=== PATIENT | male | born 1945 | race Caucasian/White ===

== ENCOUNTER 2019-09-08 10:54 | Emergency (ER) | payer MEDICARE ==
[2019-09-08] MEDS ORDERED: Bacitracin Oint 1 GM U/D Packet TOP ONE (11:14)
[2019-09-08] MEDS ORDERED: Diphtheria,Pertussis(Acell),Tetanus Vaccine 0.5 ML SDV IM ONE (11:14)
--- NOTE | 2019-09-08 11:19 | EDM.PDOC ---
ED HPI GENERAL MEDICAL PROBLEM - General Chief Complaint: Upper Extremity Injury/Pain Stated Complaint: INJURED RIGHT HAND Time Seen by Provider: 09/08/19 11:10 Source of Information: Reports: Patient History Limitations: Reports: No Limitations - History of Present Illness INITIAL COMMENTS - FREE TEXT/NARRATIVE: 74 yo male had a falling Bobcat bucket glance off his R hand. Is not sure about tetanus. Injury occurred just before arrival. Is on warfarin/ASA. Has some open wounds. Here via private vehicle. Onset: Today Onset Date: 09/08/19 Onset Time: 10:20 Duration: Minutes:, Constant Location: Reports: Upper Extremity, Right Quality: Reports: Dull Severity: Mild Improves with: Reports: Rest Worsens with: Reports: Movement Context: Reports: Trauma Associated Symptoms: Reports: No Other Symptoms Treatments STATISTICAL REPORTING ANALYST: Reports: Other (see below) (none) Right Hand Pain Score (Numeric/FACES): 2 - Related Data Allergies Allergy/AdvReac Type Severity Reaction Status Date / Time clopidogrel [From Plavix] Allergy Other Verified 09/08/19 11:24 Home Meds: Home Meds Aspirin [Halfprin] 81 mg PO DAILY 09/08/19 [History] Cholecalciferol (Vitamin D3) [Vitamin D3] 1,000 unit PO DAILY 09/08/19 [History] Losartan [Cozaar] 25 mg PO DAILY 09/08/19 [History] Magnesium Oxide [Magnesium] 400 mg PO DAILY 09/08/19 [History] Omeprazole Magnesium [Prilosec Otc] 20 mg PO DAILY 09/08/19 [History] Warfarin Sodium [Coumadin] 5 mg PO DAILY 09/08/19 [History] atorvaSTATin [Lipitor] 80 mg PO BEDTIME 09/08/19 [History] carvediloL [Carvedilol] 3.125 mg PO BID 09/08/19 [History] Review of Systems - Review of Systems Review Of Systems: See Below Constitutional: Reports: No Symptoms Musculoskeletal: Reports: Other (open wounds noted right hand) Skin: Reports: Wound (R hand) Neurological: Reports: No Symptoms ED EXAM, GENERAL - Physical Exam Exam: See Below Exam Limited By: No Limitations General Appearance: Alert, WD/WN, No Apparent Distress Neurological: Alert, Oriented, CN II-XII Intact, Normal Cognition, No Motor/ Sensory Deficits Psychiatric: Normal Affect, Normal Mood Skin Exam: Warm, Dry, Normal Color, No Rash, Wound/Incision (lacerations of the R hand noted with some active bleeding. ). No: Diaphoretic, Ecchymosis, Increased Warmth, Lymphangitis ED TRAUMA EXTREMITY PROCEDURES - Laceration/Wound Repair Right Dorsal Hand Lac/Wound Length In cm: 2.5 (had 2 lacerations this size, one on the dorsum of the R hand and one on the cruz side of the proximal R thumb. ) Appearance: Subcutaneous, Linear, Irregular, Clean Distal NVT: Neuro & Vascular Intact, No Tendon Injury Anesthetic Type: Local Local Anesthesia - Lidocaine (Xylocaine): 1% with EPI Local Anesthetic Volume: Other (10 ml) Skin Prep: Saline Exploration/Debridement/Repair: Wound Explored Closed With: Sutures Suture Size: 5-0 # of Sutures: 13 (13 sutures total for both wounds) Suture Type: Nylon, Interrupted, Simple Drain Placement: No Sterile Dressing Applied: Nurse Tetanus Status Addressed: Yes Complications: No Course - Vital Signs Last Recorded V/S: Last Vital Signs Temp 36.8 C 09/08/19 11:26 Pulse 62 09/08/19 11:26 Resp 16 09/08/19 11:26 BP 148/82 H 09/08/19 11:26 Pulse Ox 93 L 09/08/19 11:26 - Orders/Labs/Meds Orders: Active Orders 24 hr Category Date Time Status Vaccines to be Administered [RC] PER UNIT ROUTINE Care 09/08/19 11:14 Active Hand Comp Min 3V Rt [CR] Stat Exams 09/08/19 11:15 Taken Meds: Medications Discontinued Medications Generic Name Dose Route Start Last Admin Trade Name Pratibha PRN Reason Stop Dose Admin Bacitracin 2 dose 09/08/19 11:14 Bacitracin Oint 1 Gm TOP 09/08/19 11:15 ONETIME ONE Diphtheria/Tetanus/Acell Pertussis 0.5 ml 09/08/19 11:14 Adacel IM 09/08/19 11:15 .ONCE ONE Lidocaine HCl 10 ml 09/08/19 11:40 09/08/19 11:44 Xylocaine 2% Jelly MUCMEM 09/08/19 11:41 10 ml ONETIME ONE Administration Lidocaine/Epinephrine 6 ml 09/08/19 11:34 09/08/19 11:44 Xylocaine 1% With Epinephrine 1:100,000 SUBCUT 09/08/19 11:35 6 ml NOW STA Administration - Radiology Interpretation Free Text/Narrative:: R hand X-ray-neg Departure - Departure Time of Disposition: 12:15 Disposition: Home, Self-Care 01 Condition: Fair Clinical Impression: Hand laceration Qualifiers: Encounter type: initial encounter Foreign body presence: without foreign body Laterality: right Qualified Code(s): S61.411A - Laceration without foreign body of right hand, initial encounter - Discharge Information *PRESCRIPTION DRUG MONITORING PROGRAM REVIEWED*: No *COPY OF PRESCRIPTION DRUG MONITORING REPORT IN PATIENT MARILOU: No Instructions: Laceration Care, Adult, [id number] Referrals: PCP,None [Primary Care Provider] - Forms: ED Department Discharge Additional Instructions: Clean wounds twice daily with soap and water. Dry. Apply antibiotic ointment and a new dressing. Recheck for signs of infection. Acetaminophen for pain relief. Stitches out in 9-10 days. Sepsis Event Note - Focused Exam Vital Signs: Vital Signs Temp Pulse Resp BP Pulse Ox 09/08/19 11:26 36.8 C 62 16 148/82 H 93 L 09/08/19 11:18 36.8 C 62 16 148/82 H 93 L Date Exam was Performed: 09/08/19 Time Exam was Performed: 12:09 - My Orders Last 24 Hours: My Active Orders 09/08/19 11:14 Vaccines to be Administered [RC] PER UNIT ROUTINE 09/08/19 11:15 Hand Comp Min 3V Rt [CR] Stat - Assessment/Plan Last 24 Hours: My Active Orders 09/08/19 11:14 Vaccines to be Administered [RC] PER UNIT ROUTINE 09/08/19 11:15 Hand Comp Min 3V Rt [CR] Stat
[2019-09-08] MEDS ORDERED: Lidocaine 1% with EPINEPHrine 1:100,000 50 ML MDV SUBCUT STA (11:34)
[2019-09-08] MEDS ORDERED: Lidocaine 2% Jelly 10 ML Urojet MUCMEM ONE (11:40)
--- NOTE | 2019-09-08 12:54 | CR ---
Hand Comp Min 3V Rt CLINICAL HISTORY: Injury FINDINGS: There is no acute fracture or dislocation of the hand. 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 There is moderate osteoarthritic change at the first carpometacarpal junction. There is also moderate the degenerative change in the radiocarpal and ulnar carpal joints. 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
== END 2019-09-08 12:48 | disposition home or self-care (01) ==
LOC: JP.ED 10:54
DX: S61.411A Laceration without foreign body of right hand, initial encounter (principal); Z79.01 Long term (current) use of anticoagulants; Z79.82 Long term (current) use of aspirin; Z88.8 Allergy status to other drugs, medicaments and biological substances; Z79.899 Other long term (current) drug therapy; Z23 Encounter for immunization; W20.8XXA Other cause of strike by thrown, projected or falling object, initial encounter
CPT/HCPCS: 12002; 73130-26-RT; 73130-RT; 90471; 90715; 99282; 99283-25